=== PATIENT | male | born 1990 | race Caucasian/White ===

== ENCOUNTER 2021-10-11 03:07 | Emergency (ER) | payer OTHER ==
[~2021-10-11] VITALS: Ht 180.3 cm; Wt 65.8 kg
[2021-10-11] MEDS ORDERED: AMOX500 PO (06:39)
== END 2021-10-11 06:47 | disposition home or self-care (01) ==
LOC: ER 03:07
DX: S02.121A Fracture of orbital roof, right side, initial encounter for closed fracture (principal); S01.81XA Laceration without foreign body of other part of head, initial encounter; Y09 Assault by unspecified means
CPT/HCPCS: 70450; A9270

== ENCOUNTER 2021-10-15 15:07 | Emergency (ER) | payer OTHER ==
[~2021-10-15] VITALS: Ht 180.3 cm; Wt 63.5 kg
[~2021-10-15 15:07] MED LIST: AMOX500 PO
== END 2021-10-15 15:43 | disposition home or self-care (01) ==
LOC: ER 15:07
DX: Z48.02 Encounter for removal of sutures (principal)
CPT/HCPCS: 99281